=== PATIENT | female | born 1995 | race African-American/Black ===

== ENCOUNTER 2024-10-18 22:08 | Emergency (ER) | payer OTHER ==
[~2024-10-18] VITALS: Ht 167.6 cm; Wt 69.0 kg
[2024-10-18 22:11] VITALS: O2SAT 99
[2024-10-18] MEDS: ONDANSETRON HCL 4MG/2ML INJ IV STA (22:45)
[2024-10-18] MEDS: SODIUM CHLORIDE 0.9% 1,000 ML IV ONE (22:45)
[2024-10-18] MEDS ORDERED: MORPHINE SULFATE 4 MG/ML INJ (FOR IV/IM USE) IV STA (22:45)
[2024-10-18 23:04] LABS: BASOPHILS % 0.5 % (0.0-2.0); EOSINOPHILS % 0.2 % (0.0-5.0); HEMATOCRIT. 44.5 % (36.0-48.0); HEMOGLOBIN. 14.9 g/dL (12.0-16.0); LYMPHOCYTES % 16.1 % (20.0-50.0); MEAN CORPUSCULAR HEMOGLOBIN 28.4 pg (28.0-32.0); MEAN CORPUSCULAR HGB CONC 33.5 g/dL (31.0-37.0); MEAN CORPUSCULAR VOLUME 84.8 fL (81.0-99.0); MEAN PLATELET VOLUME 7.6 fl (7.4-10.4); MONOCYTES % 7.8 % (2.0-8.0); NEUTROPHILS % 75.4 % (40.0-76.0); PLATELET 326 x1000/uL (130-400); RED BLOOD CELL COUNT 5.26 mill/uL (4.2-5.4); RED CELL DISTRIBUTION WIDTH 12.8 % (11.6-14.6); WHITE BLOOD COUNT 11.5 x1000/uL (4.5-11.0)
[2024-10-18 23:10] LABS: CHLORIDE 98 mEq/L (98-107); SODIUM 135 mEq/L (136-145)
[2024-10-18 23:11] LABS: CALCIUM 10.3 mg/dL (8.7-10.4); CARBON DIOXIDE 25 mEq/L (21-32)
[2024-10-18 23:16] LABS: GLUCOSE 130 mg/dL (70-105); UREA NITROGEN BLOOD 22 mg/dL (9-23)
[2024-10-18 23:17] LABS: ETHANOL BLOOD < 10 mg/dL (<10)
[2024-10-18 23:18] LABS: ALANINE AMINOTRANSFERASE 24 IU/L (10-49); ALBUMIN 4.9 g/dL (3.2-4.8); ASPARTATE AMINOTRANSFERASE 29 IU/L (<34)
[2024-10-18 23:19] LABS: BILIRUBIN TOTAL 1.7 mg/dL (0.1-1.0); PROTEIN TOTAL 8.6 g/dL (6.0-8.3)
[2024-10-18 23:28] LABS: HCG SCREEN NEGATIVE
[2024-10-19] MEDS: MORPHINE SULFATE 4 MG/ML INJ (FOR IV/IM USE) IV NR (01:05)
[2024-10-19] MEDS: POTASSIUM CHLORIDE 20MEQ TABLET SR PO STA (01:06)
[2024-10-19] MEDS: ONDANSETRON HCL 4MG/2ML INJ IV NR (01:07)
[2024-10-19 03:06] LABS: CLARITY URINE CLOUDY (CLEAR); COLOR URINE DARK YELLOW (YELLOW); GLUCOSE URINE NEGATIVE (NEGATIVE); KETONES URINE 1+ (NEGATIVE); LEUKOCYTE ESTERASE URINE TRACE (NEGATIVE); NITRITE URINE NEGATIVE (NEGATIVE); OCCULT BLOOD URINE NEGATIVE (NEGATIVE); PH URINE 5.5 (4.5-8.0); PROTEIN URINE 2+ (NEGATIVE)
[2024-10-19 03:19] LABS: *AMPHETAMINES SCREEN URINE NEGATIVE (NEGATIVE); *BENZODIAZEPINES SCREEN URINE NEGATIVE (NEGATIVE)
[2024-10-19 03:20] LABS: *BARBITURATES SCREEN URINE NEGATIVE (NEGATIVE); *COCAINE SCREEN URINE NEGATIVE (NEGATIVE); CANNABINOID URINE SCREEN PRESUMPTIVE POSITIVE (NEGATIVE); ECSTASY MDMA SCREEN URINE NEGATIVE (NEGATIVE); METHADONE URINE SCREEN NEGATIVE (NEGATIVE); OPIATES URINE SCREEN PRESUMPTIVE POSITIVE (NEGATIVE); PHENCYCLIDINE URINE SCREEN NEGATIVE (NEGATIVE)
[2024-10-19 03:50] VITALS: BP 98/73; PULSE 73; RESP 18; TEMP 36.9; O2SAT 98
[2024-10-19 03:51] LABS: SQUAMOUS EPITHELIAL CELL URINE 1+ /lpf (RARE/1+)
[2024-10-19 03:52] LABS: RBC URINE 0-2 /hpf (0-2)
[2024-10-19 03:53] LABS: BACTERIA URINE TRACE
[2024-10-19 03:54] LABS: FINE GRANULAR CASTS URINE 0-5 /lpf
== END 2024-10-19 03:53 | disposition home or self-care (01) ==
LOC: ER 22:08
DX: R10.84 Generalized abdominal pain (principal); R11.2 Nausea with vomiting, unspecified; Z79.899 Other long term (current) drug therapy; Z88.1 Allergy status to other antibiotic agents
CPT/HCPCS: 80053; 80320; 84703; 83690; 85025; 36415; 96374; 99285; 80305; 81003; 74176; 76830; 76856; 96375; J7030; J2405; J2270; Z7610; 96361; G0480